=== PATIENT | female | born 1955 | race Caucasian/White ===

== ENCOUNTER → 2016-07-21 | Outpatient (CLI) | payer MEDICARE ==
[~2016-07-21] MED LIST: MAGIC MOUTH WASH PO; OMEPRAZOLE40 MG PO; RANITIDINE HCL300 MG PO; SIMVASTATIN40 MG PO; TENORMIN 50 MG50 MG PO
== END ==
LOC: OPSV2 10:12
DX: Z01.810 Encounter for preprocedural cardiovascular examination (principal); Z01.818 Encounter for other preprocedural examination; J38.1 Polyp of vocal cord and larynx; R49.0 Dysphonia; J38.4 Edema of larynx; R05 Cough
CPT/HCPCS: 71020; 93005

== ENCOUNTER → 2016-07-25 | Day surgery (SDC) | payer MEDICARE | END | disposition home or self-care (01) | LOC: OR 06:45 | PROVIDERS: Otolaryngology | PROC: 0CBT8ZZ Excision of Right Vocal Cord, Via Natural or Artificial Opening Endoscopic (ICD-10-PCS; principal; 2016-07-25 07:30) | DX: J38.2 Nodules of vocal cords (principal); J37.0 Chronic laryngitis; R49.0 Dysphonia; I10 Essential (primary) hypertension; K21.9 Gastro-esophageal reflux disease without esophagitis; M19.90 Unspecified osteoarthritis, unspecified site; G89.29 Other chronic pain; F17.210 Nicotine dependence, cigarettes, uncomplicated; Z88.0 Allergy status to penicillin; Z79.899 Other long term (current) drug therapy | CPT/HCPCS: J0360; J1100; J2405; J2710; J3010; J7120 ==

== ENCOUNTER → 2021-04-13 | Outpatient (CLI) | payer MEDICARE ==
[~2021-04-13] MED LIST changes: +ACID REDUCER75 MG PO; +AMLODIPINE BESYL5 MG PO; +ASPIRIN EC81 MG PO; +BRILINTA 90 MG90 MG PO; +LISINOPRIL10 MG PO; +PLAVIX75 MG PO; +SIMVASTATIN80 MG PO; +ZOCOR40 MG PO
== END ==
LOC: LAB 09:10
PROVIDERS: Internal Medicine Cardiovascular Disease
DX: E78.00 Pure hypercholesterolemia, unspecified (principal)
CPT/HCPCS: 36415; 80053; 80061

== ENCOUNTER → 2021-10-20 | Outpatient (CLI) | payer MEDICARE ==
[2021-10-20 10:16] LABS: RED BLOOD COUNT 4.62 M/UL (4.00-5.10); WHITE BLOOD COUNT 7.4 K/UL (4.5-11.0)
[2021-10-20 10:46] LABS: BUN/CREATININE RATIO 23 (0-10)
== END ==
LOC: LAB 08:55
PROVIDERS: Internal Medicine Cardiovascular Disease
DX: I10 Essential (primary) hypertension (principal)
CPT/HCPCS: 36415; 80053; 80061; 85025